=== PATIENT | female | born 1980 | race Caucasian/White ===

== ENCOUNTER 2018-01-11 06:53 | Inpatient (IN) | payer MEDICAID ==
[2018-01-11] MEDS: FAMOTIDINE 20 MG INJ IV (07:36)
[2018-01-11] MEDS: SOD CHLORIDE 0.9% 1,000 ML IV ×5 (07:36→19:43)
[2018-01-11] MEDS: ONDANSETRON 4 MG INJ IV (07:36)
[2018-01-11] MEDS: morphine 4 MG/ML VIAL IV (07:48)
[2018-01-11 07:55] LABS: ADD MAN DIFF? NO
[2018-01-11 08:17] LABS: ALANINE AMINOTRANSFERASE 27 IU/L (13-69); ALBUMIN 4.1 g/dl (3.3-4.9); ALKALINE PHOSPHATASE 77 IU/L (42-121); ANION GAP 11 (8-16); ASPARTATE AMINO TRANSFERASE 24 IU/L (15-46); BILIRUBIN,INDIRECT 0.4 mg/dl (0-1.1); BILIRUBIN,TOTAL 0.4 mg/dl (0.2-1.3); BLOOD UREA NITROGEN 13 mg/dl (7-20); CALCIUM 8.7 mg/dl (8.4-10.2); CARBON DIOXIDE 33 mmol/L (21-31); CHLORIDE 102 mmol/L (97-110); CREATININE 0.62 mg/dl (0.44-1.00); GLUCOSE 134 mg/dl (70-220); LIPASE 74 U/L (23-300); POTASSIUM 4.3 mmol/L (3.5-5.1); SODIUM 142 mmol/L (135-144); TOTAL PROTEIN 7.8 g/dl (6.1-8.1)
[2018-01-11 08:28] LABS: WHITE BLOOD COUNT 13.4 10^3/ul (4.8-10.8)
[2018-01-11 08:28] LABS: BASOPHILS % 0.2 % (0.0-2.0); EOSINOPHILS % 0.2 % (0.0-7.0); HEMATOCRIT 38.5 % (37.0-47.0); HEMOGLOBIN 12.4 g/dl (12.0-16.0); LYMPHOCYTES # 0.8 10^3/ul (0.8-2.9); LYMPHOCYTES % 6.2 % (15.0-51.0); MEAN CORPUSCULAR HEMOGLOBIN 28.4 pg (29.0-33.0); MEAN CORPUSCULAR HGB CONC 32.2 g/dl (32.0-37.0); MEAN CORPUSCULAR VOLUME 88.1 fl (82.0-101.0); MEAN PLATELET VOLUME 11.2 fl (7.4-10.4); MONOCYTE # 0.4 10^3/ul (0.3-0.9); MONOCYTES % 2.7 % (0.0-11.0); NEUTROPHIL # 12.1 10^3/ul (1.6-7.5); NEUTROPHILS % 90.6 % (39.0-77.0); PLATELET COUNT 316 10^3/UL (140-415); RED BLOOD COUNT 4.37 10^6/ul (4.20-5.40); RED CELL DISTRIBUTION WIDTH 16.5 % (11.5-14.5)
[2018-01-11 09:31] LABS: ADD UMIC YES; UR ASCORBIC ACID NEGATIVE (NEGATIVE); UR BILIRUBIN (Dip) NEGATIVE (NEGATIVE); UR BLOOD (Dip) 1+ mg/dL (NEGATIVE); UR CLARITY CLEAR (CLEAR); UR COLOR YELLOW (YELLOW); UR GLUCOSE (Dip) NEGATIVE (NEGATIVE); UR KETONES (Dip) NEGATIVE (NEGATIVE); UR LEUKOCYTE ESTERASE (Dip) NEGATIVE Leu/ul (NEGATIVE); UR NITRITE (Dip) NEGATIVE (NEGATIVE); UR RBC 48 /HPF (0-5); UR SPECIFIC GRAVITY (Dip) 1.024 (1.003-1.030); UR TOTAL PROTEIN (Dip) 1+ mg/dl (NEGATIVE); UR UROBILINOGEN (Dip) NEGATIVE (NEGATIVE); UR WBC 1 /HPF (0-5)
[2018-01-11] MEDS ORDERED: ACETAMINOPHEN 325 MG TAB PO (10:30)
[2018-01-11] MEDS ORDERED: ONDANSETRON 4 MG INJ IV ×2 (10:30→12:00)
[2018-01-11] MEDS ORDERED: ACETAMINOPHEN 650 MG SUPP PR (12:00)
[2018-01-11] MEDS ORDERED: NACL 0.9% 3 ML SYG IV (12:00)
[2018-01-11] MEDS: metroNIDAZOLE 500 MG/NS (PMX) 100 ML IVPB ×2 (13:57→21:07)
[2018-01-11] MEDS: METOCLOPRAMIDE 10 MG INJ IV ×3 (13:57→23:33)
[2018-01-11] MEDS: CIPROFLOXACIN 400MG/D5W 200 ML IVPB (23:01)
[2018-01-12] MEDS: morphine 2 MG INJ IV (01:33)
[2018-01-12] MEDS: SOD CHLORIDE 0.9% 1,000 ML IV ×3 (01:36→20:57)
[2018-01-12 05:23] LABS: ADD MAN DIFF? NO
[2018-01-12 05:32] LABS: WHITE BLOOD COUNT 3.9 10^3/ul (4.8-10.8)
[2018-01-12 05:32] LABS: BASOPHILS % 0.3 % (0.0-2.0); HEMOGLOBIN 9.7 g/dl (12.0-16.0); LYMPHOCYTES # 1.4 10^3/ul (0.8-2.9); LYMPHOCYTES % 34.7 % (15.0-51.0); MEAN CORPUSCULAR HEMOGLOBIN 28.8 pg (29.0-33.0); MEAN CORPUSCULAR HGB CONC 32.3 g/dl (32.0-37.0); MEAN PLATELET VOLUME 11.5 fl (7.4-10.4); MONOCYTE # 0.2 10^3/ul (0.3-0.9); MONOCYTES % 6.2 % (0.0-11.0); NEUTROPHIL # 2.2 10^3/ul (1.6-7.5); NEUTROPHILS % 57.3 % (39.0-77.0); PLATELET COUNT 244 10^3/UL (140-415); RED BLOOD COUNT 3.37 10^6/ul (4.20-5.40); RED CELL DISTRIBUTION WIDTH 16.6 % (11.5-14.5)
[2018-01-12 05:57] LABS: ALANINE AMINOTRANSFERASE 65 IU/L (13-69); ALBUMIN 2.7 g/dl (3.3-4.9); ALBUMIN/GLOBULIN RATIO 1.03; ALKALINE PHOSPHATASE 72 IU/L (42-121); ANION GAP 9 (8-16); ASPARTATE AMINO TRANSFERASE 72 IU/L (15-46); BILIRUBIN,INDIRECT 0.4 mg/dl (0-1.1); BILIRUBIN,TOTAL 0.4 mg/dl (0.2-1.3); BLOOD UREA NITROGEN 7 mg/dl (7-20); CALCIUM 7.8 mg/dl (8.4-10.2); CARBON DIOXIDE 26 mmol/L (21-31); CHLORIDE 108 mmol/L (97-110); CREATININE 0.45 mg/dl (0.44-1.00); GLUCOSE 84 mg/dl (70-220); MAGNESIUM 1.8 mg/dl (1.7-2.5); PHOSPHORUS 2.4 mg/dl (2.5-4.9); POTASSIUM 3.8 mmol/L (3.5-5.1); SODIUM 139 mmol/L (135-144); TOTAL PROTEIN 5.3 g/dl (6.1-8.1)
[2018-01-12] MEDS: metroNIDAZOLE 500 MG/NS (PMX) 100 ML IVPB ×3 (06:03→22:11)
[2018-01-12] MEDS: PANTOPRAZOLE 40 MG INJ IV (06:03)
[2018-01-12] MEDS: METOCLOPRAMIDE 10 MG INJ IV ×4 (06:03→23:48)
[2018-01-12 06:06] LABS: C-REACTIVE PROTEIN 1.8 mg/dl (0.0-0.9)
[2018-01-12] MEDS: DIATR MEGLU/DIATRIZOATE SODIUM 120 ML BTL PO (07:00)
[2018-01-12 07:46] LABS: ERYTHROCYTE SEDIMENTATION RATE 17 mm/Hr (0-20)
[2018-01-12 08:47] LABS: BARBITURATES NEGATIVE (NEGATIVE); BENZODIAZEPINES NEGATIVE (NEGATIVE)
[2018-01-12 09:04] LABS: AMPHETAMINE/METHAMPHETAMINE POSITIVE (NEGATIVE); CANNABINOIDS POSITIVE (NEGATIVE); COCAINE POSITIVE (NEGATIVE); OPIATES POSITIVE (NEGATIVE)
[2018-01-12] MEDS: CIPROFLOXACIN 400MG/D5W 200 ML IVPB ×2 (09:14→21:00)
[2018-01-13] MEDS: SOD CHLORIDE 0.9% 1,000 ML IV ×2 (03:43→09:25)
[2018-01-13] MEDS: METOCLOPRAMIDE 10 MG INJ IV (05:41)
[2018-01-13] MEDS: PANTOPRAZOLE 40 MG INJ IV (05:41)
[2018-01-13] MEDS: metroNIDAZOLE 500 MG/NS (PMX) 100 ML IVPB (05:41)
[2018-01-13] MEDS: CIPROFLOXACIN 400MG/D5W 200 ML IVPB (09:25)
[2018-01-15 02:48] LABS: URINE DRUG SCREEN RESULT DRUG(S) DETECTED:
== END 2018-01-13 10:28 | disposition home or self-care (01) | DRG 392 ==
LOC: FTE 06:53 → MS1 10:39
DX: K52.9 Noninfective gastroenteritis and colitis, unspecified (principal); F15.10 Other stimulant abuse, uncomplicated; D72.829 Elevated white blood cell count, unspecified; F17.210 Nicotine dependence, cigarettes, uncomplicated; F10.21 Alcohol dependence, in remission
CPT/HCPCS: 36415; 74176; 80053; 80307; 81001; 81025; 83690; 83735; 84100; 85025; 85651; 86140; 87040; 87086; 96361; 96374; 96375; 99285-25